=== PATIENT | female | born 1995 | race Caucasian/White ===

== ENCOUNTER 2017-08-17 15:20 | Inpatient (IN) | payer BC ==
[~2017-08-17 15:20] MED LIST: ROCURONIUM 50 MG INJ
[2017-08-17] MEDS ORDERED: MIDAZOLAM 1 MG/ML 2 ML INJ (18:14)
[2017-08-17] MEDS ORDERED: VANCOMYCIN 1 GM (PMX) 250 ML (18:21)
[2017-08-17] MEDS ORDERED: DIPHENHYDRAMINE 25 MG CAP PO (18:30)
[2017-08-17] MEDS ORDERED: VANCOMYCIN 1 GM (PMX) 250 ML IVPB (18:30)
[2017-08-17] MEDS ORDERED: BISACODYL 10 MG SUPP PR (18:30)
[2017-08-17] MEDS: VANCOMYCIN 1 GM 250 ML IVPB (18:30)
[2017-08-17] MEDS ORDERED: VANCOMYCIN IV PER PHARMACY XX (18:30)
[2017-08-17] MEDS: BACITRACIN 50000 UNITS INJ (19:33)
[2017-08-17] MEDS: POLYMYXIN/BACITRACIN 1L IRRIG (19:34)
[2017-08-17] MEDS: POLYMYXIN B 500000 UNIT INJ (19:34)
[2017-08-17] MEDS: VANCOMYCIN 1 GM INJ (19:40)
[2017-08-17] MEDS ORDERED: LIDOCAINE 100 MG SYRINGE (19:57)
[2017-08-17] MEDS ORDERED: PROPOFOL 20 ML (19:57)
[2017-08-17] MEDS ORDERED: ONDANSETRON 4 MG INJ (19:57)
[2017-08-17] MEDS ORDERED: morphine 10 MG INJ (19:59)
[2017-08-17] MEDS ORDERED: VANCOMYCIN 1 GM INJ ×2 (20:13→20:17)
[2017-08-17] MEDS ORDERED: FENTAnyl 50 MCG/ML VIAL (21:17)
[2017-08-17] MEDS ORDERED: HYDROmorphONE (0.2 MG/ML) 10ML SYG IV ×2 (21:30)
[2017-08-17] MEDS ORDERED: MEPERIDINE 25 MG INJ IV (21:30)
[2017-08-17] MEDS ORDERED: METOCLOPRAMIDE 10 MG INJ IV (21:30)
[2017-08-17] MEDS ORDERED: ONDANSETRON 4 MG INJ IV (21:30)
[2017-08-17] MEDS ORDERED: DIPHENHYDRAMINE 50 MG INJ IV (21:30)
[2017-08-17] MEDS: FENTAnyl 50 MCG/ML VIAL IV ×2 (21:31→21:47)
[2017-08-17] MEDS: ONDANSETRON 4 MG INJ IV (21:31)
[2017-08-17] MEDS: SOD CHLORIDE 0.9% 1,000 ML IV (22:42)
[2017-08-17] MEDS: morphine 10 MG INJ IV (22:46)
[2017-08-18] MEDS: OXYCODONE/ACETAMINOPHEN (5/325) TAB PO ×4 (00:17→18:25)
[2017-08-18] MEDS: morphine 10 MG INJ IV ×3 (04:20→21:07)
[2017-08-18] MEDS: VANCOMYCIN 1 GM 250 ML IVPB ×3 (04:21→20:56)
[2017-08-18 05:04] LABS: ADD MAN DIFF? NO
[2017-08-18 05:08] LABS: BASOPHILS % 0.2 % (0.0-2.0); HEMATOCRIT 32.2 % (37.0-47.0); HEMOGLOBIN 10.7 g/dl (12.0-16.0); LYMPHOCYTES # 0.8 10^3/ul (0.8-2.9); LYMPHOCYTES % 6.8 % (18.0-55.0); MEAN CORPUSCULAR HEMOGLOBIN 30.1 pg (29.0-33.0); MEAN CORPUSCULAR HGB CONC 33.2 g/dl (32.0-37.0); MEAN CORPUSCULAR VOLUME 90.4 fl (72.0-104.0); MEAN PLATELET VOLUME 10.2 fl (7.4-10.4); MONOCYTE # 0.3 10^3/ul (0.3-0.9); MONOCYTES % 2.9 % (0.0-13.0); NEUTROPHIL # 10.3 10^3/ul (1.6-7.5); NEUTROPHILS % 89.7 % (30.0-74.0); PLATELET COUNT 238 10^3/UL (140-415); RED BLOOD COUNT 3.56 10^6/ul (4.20-5.40); RED CELL DISTRIBUTION WIDTH 12.5 % (11.5-14.5)
[2017-08-18 05:08] LABS: WHITE BLOOD COUNT 11.5 10^3/ul (4.8-10.8)
[2017-08-18] MEDS: SOD CHLORIDE 0.9% 1,000 ML IV ×3 (07:29→21:07)
[2017-08-19] MEDS: OXYCODONE/ACETAMINOPHEN (5/325) TAB PO (00:06)
[2017-08-19 03:30] LABS: ADD MAN DIFF? NO
[2017-08-19 03:31] LABS: WHITE BLOOD COUNT 7.2 10^3/ul (4.8-10.8)
[2017-08-19 03:31] LABS: BASOPHILS % 0.3 % (0.0-2.0); EOSINOPHILS # 0.1 10^3/ul (0.0-0.5); EOSINOPHILS % 1.7 % (0.0-7.0); HEMATOCRIT 28.4 % (37.0-47.0); HEMOGLOBIN 9.5 g/dl (12.0-16.0); LYMPHOCYTES # 1.7 10^3/ul (0.8-2.9); LYMPHOCYTES % 23.8 % (18.0-55.0); MEAN CORPUSCULAR HEMOGLOBIN 30.4 pg (29.0-33.0); MEAN CORPUSCULAR HGB CONC 33.5 g/dl (32.0-37.0); MEAN CORPUSCULAR VOLUME 90.7 fl (72.0-104.0); MEAN PLATELET VOLUME 9.5 fl (7.4-10.4); MONOCYTE # 0.7 10^3/ul (0.3-0.9); MONOCYTES % 10.1 % (0.0-13.0); NEUTROPHIL # 4.6 10^3/ul (1.6-7.5); NEUTROPHILS % 63.8 % (30.0-74.0); PLATELET COUNT 192 10^3/UL (140-415); RED BLOOD COUNT 3.13 10^6/ul (4.20-5.40); RED CELL DISTRIBUTION WIDTH 12.6 % (11.5-14.5)
[2017-08-19 03:58] LABS: CREATININE 0.71 mg/dl (0.44-1.00)
[2017-08-19 03:58] LABS: BLOOD UREA NITROGEN 6 mg/dl (7-20)
[2017-08-19 03:59] LABS: ANION GAP 11 (8-16); BLOOD UREA NITROGEN 6 mg/dl (7-20); C-REACTIVE PROTEIN 3.4 mg/dl (0.0-0.9); CALCIUM 8.4 mg/dl (8.4-10.2); CARBON DIOXIDE 25 mmol/L (21-31); CHLORIDE 108 mmol/L (97-110); CREATININE 0.72 mg/dl (0.44-1.00); GLUCOSE 100 mg/dl (70-220); POTASSIUM 3.5 mmol/L (3.5-5.1); SODIUM 140 mmol/L (135-144)
[2017-08-19 04:02] LABS: VANCOMYCIN,TROUGH 14.3 ug/ml (10.0-20.0)
[2017-08-19] MEDS: VANCOMYCIN 1 GM 250 ML IVPB ×2 (04:59→13:12)
[2017-08-19] MEDS: morphine 10 MG INJ IV (05:21)
[2017-08-19 05:53] LABS: ERYTHROCYTE SEDIMENTATION RATE 25 mm/Hr (0-20)
[2017-08-19] MEDS ORDERED: ROPIVACAINE 0.5 % 30 ML VIAL (06:58)
[2017-08-19] MEDS ORDERED: LIDOCAINE 100 MG SYRINGE (07:00)
[2017-08-19] MEDS: BACITRACIN 50000 UNITS INJ (08:11)
[2017-08-19] MEDS: POLYMYXIN B 500000 UNIT INJ ×2 (08:11→08:41)
[2017-08-19] MEDS ORDERED: POLYMYXIN B 500000 UNIT INJ (08:35)
[2017-08-19] MEDS ORDERED: PROPOFOL 100 ML (08:50)
[2017-08-19] MEDS ORDERED: ROCURONIUM 50 MG INJ (08:51)
[2017-08-19] MEDS ORDERED: ACETAMINOPHEN 1000MG/100ML IV 100 ML (08:51)
[2017-08-19] MEDS ORDERED: DEXAMETHASONE 4 MG/ML 1 ML INJ (08:51)
[2017-08-19] MEDS ORDERED: ONDANSETRON 4 MG INJ (08:52)
[2017-08-19] MEDS ORDERED: SUGAMMADEX SODIUM 200 MG/2 ML VIAL IV (09:11)
[2017-08-19] MEDS: POVIDONE IODINE 10% 28.4 GM OINT (09:24)
[2017-08-19] MEDS ORDERED: SOD CHLORIDE 0.9% 1,000 ML IV (09:33)
[2017-08-19] MEDS ORDERED: MEPERIDINE 25 MG INJ (09:41)
[2017-08-19] MEDS ORDERED: HYDROmorphONE (0.2 MG/ML) 10ML SYG IV ×2 (09:46→10:00)
[2017-08-19] MEDS ORDERED: DIPHENHYDRAMINE 50 MG INJ IV (10:00)
[2017-08-19] MEDS ORDERED: ONDANSETRON 4 MG INJ IV ×2 (10:00)
[2017-08-19] MEDS ORDERED: MEPERIDINE 25 MG INJ IV (10:00)
[2017-08-19] MEDS ORDERED: LABETALOL HCL 20MG INJ IV (10:00)
[2017-08-19] MEDS ORDERED: BISACODYL 10 MG SUPP PR (10:00)
[2017-08-19] MEDS ORDERED: EPHEDrine SULFATE 50 MG/5 ML SYG IV (10:00)
[2017-08-19] MEDS ORDERED: METOCLOPRAMIDE 10 MG INJ IV (10:00)
[2017-08-19] MEDS ORDERED: FENTAnyl 50 MCG/ML VIAL IV ×3 (10:00)
[2017-08-19] MEDS ORDERED: ALBUTEROL 0.083% (NEB) 2.5 MG/3 ML AMP HHN (10:00)
[2017-08-19] MEDS ORDERED: OXYCODONE/ACETAMINOPHEN (5/325) TAB PO (10:00)
[2017-08-19] MEDS ORDERED: MIDAZOLAM 1 MG/ML 2 ML INJ IV (10:00)
[2017-08-19] MEDS ORDERED: morphine 10 MG INJ IV (10:00)
[2017-08-19] MEDS ORDERED: hydrALAzine 20 MG INJ IV (10:00)
[2017-08-19] MEDS ORDERED: DIPHENHYDRAMINE 25 MG CAP PO (10:00)
[2017-08-19] MEDS: HYDROmorphONE (0.2 MG/ML) 10ML SYG IV ×2 (10:19→10:21)
[2017-08-19] MEDS: morphine 1 MG/ML 30 ML (PCA) IV ×2 (10:30→20:40)
[2017-08-19] MEDS: KETOROLAC 30 MG INJ IV (10:34)
[2017-08-19] MEDS: SOD CHLORIDE 0.9% 1,000 ML IV ×2 (11:40→22:00)
[2017-08-19] MEDS: OXACILLIN 2 GM in SOD CHLORIDE 0.9% 50 ML IVPB (20:21)
[2017-08-19] MEDS ORDERED: morphine 1 MG/ML 30 ML (PCA) (20:29)
[2017-08-19] MEDS: MAGNESIUM HYDROXIDE 30ML CUP PO (20:36)
[2017-08-19] MEDS ORDERED: SENNA/DOCUSATE NA (8.6MG/50MG) TAB PO (21:00)
[2017-08-20] MEDS: OXACILLIN 2 GM in SOD CHLORIDE 0.9% 50 ML IVPB ×6 (01:29→21:19)
[2017-08-20] MEDS: SOD CHLORIDE 0.9% 1,000 ML IV ×2 (05:26→18:00)
[2017-08-20 06:17] LABS: ADD MAN DIFF? NO
[2017-08-20 06:33] LABS: BASOPHILS % 0.1 % (0.0-2.0); EOSINOPHILS % 0.4 % (0.0-7.0); HEMATOCRIT 27.5 % (37.0-47.0); HEMOGLOBIN 9.2 g/dl (12.0-16.0); LYMPHOCYTES # 1.3 10^3/ul (0.8-2.9); LYMPHOCYTES % 14.8 % (18.0-55.0); MEAN CORPUSCULAR HEMOGLOBIN 30.3 pg (29.0-33.0); MEAN CORPUSCULAR HGB CONC 33.5 g/dl (32.0-37.0); MEAN CORPUSCULAR VOLUME 90.5 fl (72.0-104.0); MEAN PLATELET VOLUME 11.2 fl (7.4-10.4); MONOCYTE # 0.8 10^3/ul (0.3-0.9); NEUTROPHIL # 6.7 10^3/ul (1.6-7.5); NEUTROPHILS % 75.3 % (30.0-74.0); PLATELET COUNT 189 10^3/UL (140-415); RED BLOOD COUNT 3.04 10^6/ul (4.20-5.40); RED CELL DISTRIBUTION WIDTH 12.5 % (11.5-14.5)
[2017-08-20 06:33] LABS: WHITE BLOOD COUNT 8.9 10^3/ul (4.8-10.8)
[2017-08-20] MEDS: MULTIVITAMINS THERAPEUTIC TAB PO (13:32)
[2017-08-20] MEDS: morphine 1 MG/ML 30 ML (PCA) IV (17:43)
[2017-08-20] MEDS: MAGNESIUM HYDROXIDE 30ML CUP PO (20:12)
[2017-08-21] MEDS: OXACILLIN 2 GM in SOD CHLORIDE 0.9% 50 ML IVPB ×6 (00:25→21:19)
[2017-08-21 05:18] LABS: ADD MAN DIFF? NO
[2017-08-21 05:23] LABS: BASOPHILS % 0.3 % (0.0-2.0); EOSINOPHILS # 0.1 10^3/ul (0.0-0.5); EOSINOPHILS % 2.3 % (0.0-7.0); HEMATOCRIT 25.9 % (37.0-47.0); HEMOGLOBIN 8.5 g/dl (12.0-16.0); LYMPHOCYTES # 1.9 10^3/ul (0.8-2.9); LYMPHOCYTES % 31.5 % (18.0-55.0); MEAN CORPUSCULAR HGB CONC 32.8 g/dl (32.0-37.0); MEAN CORPUSCULAR VOLUME 91.5 fl (72.0-104.0); MEAN PLATELET VOLUME 10.3 fl (7.4-10.4); MONOCYTE # 0.5 10^3/ul (0.3-0.9); MONOCYTES % 7.6 % (0.0-13.0); NEUTROPHIL # 3.4 10^3/ul (1.6-7.5); NEUTROPHILS % 57.8 % (30.0-74.0); PLATELET COUNT 187 10^3/UL (140-415); RED BLOOD COUNT 2.83 10^6/ul (4.20-5.40); RED CELL DISTRIBUTION WIDTH 12.4 % (11.5-14.5)
[2017-08-21] MEDS ORDERED: METOCLOPRAMIDE 10 MG INJ ×2 (07:00→20:22)
[2017-08-21] MEDS: MULTIVITAMINS THERAPEUTIC TAB PO (09:17)
[2017-08-21] MEDS: RIFAMPIN 300 MG CAP PO (09:17)
[2017-08-21] MEDS: FERROUS SULFATE (EC) 325 MG TAB PO (09:18)
[2017-08-21] MEDS: LACTATED RINGER'S 1,000 ML IV (10:30)
[2017-08-21] MEDS ORDERED: PROPOFOL 20 ML (20:02)
[2017-08-21] MEDS ORDERED: LIDOCAINE 2% (SDV) 5 ML INJ (20:02)
[2017-08-21] MEDS ORDERED: MIDAZOLAM 1 MG/ML 2 ML INJ (20:03)
[2017-08-21] MEDS ORDERED: ACETAMINOPHEN 1000MG/100ML IV 100 ML (20:04)
[2017-08-21] MEDS ORDERED: FENTAnyl 50 MCG/ML VIAL ×2 (20:15→20:34)
[2017-08-21] MEDS ORDERED: ONDANSETRON 4 MG INJ (20:18)
[2017-08-21] MEDS ORDERED: KETOROLAC 30 MG INJ (20:32)
[2017-08-21] MEDS: POLYMYXIN/BACITRACIN 1L IRRIG (20:45)
[2017-08-21] MEDS ORDERED: MAGNESIUM HYDROXIDE 30ML CUP PO (21:00)
[2017-08-21] MEDS: MAGNESIUM HYDROXIDE 30ML CUP PO (21:00)
[2017-08-21] MEDS: morphine 1 MG/ML 30 ML (PCA) IV (23:00)
[2017-08-22] MEDS: OXACILLIN 2 GM in SOD CHLORIDE 0.9% 50 ML IVPB ×6 (01:51→20:13)
[2017-08-22 05:13] LABS: ADD MAN DIFF? NO
[2017-08-22 05:18] LABS: BASOPHILS % 0.2 % (0.0-2.0); EOSINOPHILS # 0.2 10^3/ul (0.0-0.5); EOSINOPHILS % 3.8 % (0.0-7.0); LYMPHOCYTES # 1.6 10^3/ul (0.8-2.9); LYMPHOCYTES % 28.1 % (18.0-55.0); MEAN CORPUSCULAR HEMOGLOBIN 29.8 pg (29.0-33.0); MEAN CORPUSCULAR HGB CONC 33.3 g/dl (32.0-37.0); MEAN CORPUSCULAR VOLUME 89.4 fl (72.0-104.0); MEAN PLATELET VOLUME 10.8 fl (7.4-10.4); MONOCYTE # 0.5 10^3/ul (0.3-0.9); MONOCYTES % 8.6 % (0.0-13.0); NEUTROPHIL # 3.3 10^3/ul (1.6-7.5); NEUTROPHILS % 58.9 % (30.0-74.0); PLATELET COUNT 246 10^3/UL (140-415); RED BLOOD COUNT 3.02 10^6/ul (4.20-5.40); RED CELL DISTRIBUTION WIDTH 12.1 % (11.5-14.5)
[2017-08-22 05:18] LABS: WHITE BLOOD COUNT 5.6 10^3/ul (4.8-10.8)
[2017-08-22] MEDS: MULTIVITAMINS THERAPEUTIC TAB PO (08:50)
[2017-08-22] MEDS: FERROUS SULFATE (EC) 325 MG TAB PO (08:50)
[2017-08-22] MEDS: RIFAMPIN 300 MG CAP PO (08:50)
[2017-08-22] MEDS: MAGNESIUM HYDROXIDE 30ML CUP PO (20:13)
[2017-08-23] MEDS: OXACILLIN 2 GM in SOD CHLORIDE 0.9% 50 ML IVPB ×2 (00:41→04:50)
[2017-08-23 05:11] LABS: ADD MAN DIFF? NO
[2017-08-23 05:18] LABS: WHITE BLOOD COUNT 6.3 10^3/ul (4.8-10.8)
[2017-08-23 05:18] LABS: BASOPHILS % 0.2 % (0.0-2.0); EOSINOPHILS # 0.3 10^3/ul (0.0-0.5); HEMATOCRIT 27.6 % (37.0-47.0); HEMOGLOBIN 9.2 g/dl (12.0-16.0); LYMPHOCYTES # 1.6 10^3/ul (0.8-2.9); LYMPHOCYTES % 25.3 % (18.0-55.0); MEAN CORPUSCULAR HEMOGLOBIN 29.8 pg (29.0-33.0); MEAN CORPUSCULAR HGB CONC 33.3 g/dl (32.0-37.0); MEAN CORPUSCULAR VOLUME 89.3 fl (72.0-104.0); MEAN PLATELET VOLUME 10.2 fl (7.4-10.4); MONOCYTE # 0.4 10^3/ul (0.3-0.9); MONOCYTES % 6.5 % (0.0-13.0); NEUTROPHILS % 63.7 % (30.0-74.0); PLATELET COUNT 257 10^3/UL (140-415); RED BLOOD COUNT 3.09 10^6/ul (4.20-5.40); RED CELL DISTRIBUTION WIDTH 12.2 % (11.5-14.5)
[2017-08-23] MEDS: LEVOFLOXACIN 500 MG TAB PO (05:55)
[2017-08-23] MEDS: RIFAMPIN 300 MG CAP PO (08:36)
[2017-08-23] MEDS: MULTIVITAMINS THERAPEUTIC TAB PO (08:36)
[2017-08-23] MEDS: FERROUS SULFATE (EC) 325 MG TAB PO (08:36)
[2017-08-23] MEDS: OXYCODONE/ACETAMINOPHEN (5/325) TAB PO ×2 (17:31→21:46)
[2017-08-23] MEDS: MAGNESIUM HYDROXIDE 30ML CUP PO (21:00)
[2017-08-24] MEDS: LEVOFLOXACIN 500 MG TAB PO (05:24)
[2017-08-24] MEDS: OXYCODONE/ACETAMINOPHEN (5/325) TAB PO ×2 (05:24→18:59)
[2017-08-24 05:29] LABS: ADD MAN DIFF? NO
[2017-08-24 05:39] LABS: BASOPHILS % 0.4 % (0.0-2.0); EOSINOPHILS # 0.3 10^3/ul (0.0-0.5); EOSINOPHILS % 4.9 % (0.0-7.0); HEMATOCRIT 30.1 % (37.0-47.0); HEMOGLOBIN 9.9 g/dl (12.0-16.0); LYMPHOCYTES # 1.8 10^3/ul (0.8-2.9); LYMPHOCYTES % 31.9 % (18.0-55.0); MEAN CORPUSCULAR HEMOGLOBIN 29.6 pg (29.0-33.0); MEAN CORPUSCULAR HGB CONC 32.9 g/dl (32.0-37.0); MEAN CORPUSCULAR VOLUME 89.9 fl (72.0-104.0); MEAN PLATELET VOLUME 10.3 fl (7.4-10.4); MONOCYTE # 0.5 10^3/ul (0.3-0.9); MONOCYTES % 8.6 % (0.0-13.0); NEUTROPHIL # 3.1 10^3/ul (1.6-7.5); NEUTROPHILS % 53.8 % (30.0-74.0); PLATELET COUNT 296 10^3/UL (140-415); RED BLOOD COUNT 3.35 10^6/ul (4.20-5.40)
[2017-08-24 05:39] LABS: WHITE BLOOD COUNT 5.7 10^3/ul (4.8-10.8)
[2017-08-24] MEDS: MULTIVITAMINS THERAPEUTIC TAB PO (08:33)
[2017-08-24] MEDS: FERROUS SULFATE (EC) 325 MG TAB PO (08:33)
[2017-08-24] MEDS: RIFAMPIN 300 MG CAP PO (08:33)
[2017-08-24] MEDS: MAGNESIUM HYDROXIDE 30ML CUP PO (21:00)
[2017-08-25 05:59] LABS: ADD MAN DIFF? NO
[2017-08-25 06:15] LABS: BASOPHILS % 0.5 % (0.0-2.0); EOSINOPHILS # 0.3 10^3/ul (0.0-0.5); EOSINOPHILS % 4.2 % (0.0-7.0); HEMATOCRIT 29.8 % (37.0-47.0); LYMPHOCYTES # 2.1 10^3/ul (0.8-2.9); LYMPHOCYTES % 32.8 % (18.0-55.0); MEAN CORPUSCULAR HEMOGLOBIN 29.9 pg (29.0-33.0); MEAN CORPUSCULAR HGB CONC 33.6 g/dl (32.0-37.0); MEAN CORPUSCULAR VOLUME 89.2 fl (72.0-104.0); MEAN PLATELET VOLUME 10.4 fl (7.4-10.4); MONOCYTE # 0.6 10^3/ul (0.3-0.9); MONOCYTES % 8.6 % (0.0-13.0); NEUTROPHIL # 3.5 10^3/ul (1.6-7.5); NEUTROPHILS % 53.6 % (30.0-74.0); PLATELET COUNT 314 10^3/UL (140-415); RED BLOOD COUNT 3.34 10^6/ul (4.20-5.40); RED CELL DISTRIBUTION WIDTH 12.4 % (11.5-14.5)
[2017-08-25 06:15] LABS: WHITE BLOOD COUNT 6.4 10^3/ul (4.8-10.8)
[2017-08-25] MEDS: OXYCODONE/ACETAMINOPHEN (5/325) TAB PO (06:43)
[2017-08-25] MEDS: LEVOFLOXACIN 500 MG TAB PO (06:43)
[2017-08-25] MEDS: MULTIVITAMINS THERAPEUTIC TAB PO (09:03)
[2017-08-25] MEDS: RIFAMPIN 300 MG CAP PO (09:04)
[2017-08-25] MEDS: FERROUS SULFATE (EC) 325 MG TAB PO (09:04)
== END 2017-08-25 17:30 | disposition home or self-care (01) | DRG 486 ==
LOC: REC 15:20 → MS1 22:15
PROVIDERS: Orthopaedic Surgery
PROC: 0KBQ0ZZ Excision of Right Upper Leg Muscle, Open Approach (ICD-10-PCS; principal; 2017-08-17 17:00)
PROC: 0MBN0ZZ Excision of Right Knee Bursa and Ligament, Open Approach (ICD-10-PCS; 2017-08-17 17:00)
PROC: 0SBC4ZZ Excision of Right Knee Joint, Percutaneous Endoscopic Approach (ICD-10-PCS; 2017-08-17 18:20)
PROC: 0S9C40Z Drainage of Right Knee Joint with Drainage Device, Percutaneous Endoscopic Approach (ICD-10-PCS; 2017-08-17 18:20)
PROC: 3E1U38Z Irrigation of Joints using Irrigating Substance, Percutaneous Approach (ICD-10-PCS; 2017-08-17 18:20)
DX: T84.7XXA Infection and inflammatory reaction due to other internal orthopedic prosthetic devices, implants and grafts, initial encounter (principal); M00.061 Staphylococcal arthritis, right knee; B95.61 Methicillin susceptible Staphylococcus aureus infection as the cause of diseases classified elsewhere
CPT/HCPCS: 73721; 80048; 80202; 82565; 84520; 84703; 85025; 85651; 86140; 87070; 87075; 87102; 87116; 97116; 97163; 97164; 97530